=== PATIENT | male | born 2000 | race African-American/Black ===

== ENCOUNTER 2021-09-15 19:44 | Emergency (ER) | payer MEDICAID ==
[~2021-09-15] VITALS: Ht 175.3 cm; Wt 63.5 kg
[2021-09-15 19:47] VITALS: BP 126/61
[2021-09-15] MEDS ORDERED: ACETAMINOPHEN 325 MG TAB PO ONE (20:00)
[2021-09-16] MEDS ORDERED: IBUP800T27 PO (00:44)
[2021-09-16] MEDS ORDERED: GUAI600T23 PO (00:44)
[2021-09-16] MEDS ORDERED: ALBUAER3 IN (00:44)
== END 2021-09-16 00:45 | disposition home or self-care (01) ==
LOC: ER 19:48
DX: U07.1 COVID-19 (principal)
CPT/HCPCS: 36415; 87426